=== PATIENT | male | born 1980 | race Caucasian/White ===

== ENCOUNTER 2017-06-14 09:13 | Inpatient (IN) | payer BC ==
[~2017-06-14] VITALS: Ht 172.7 cm; Wt 82.1 kg
[2017-06-14 09:16] VITALS: BP 125/77
--- NOTE | 2017-06-14 09:22 | NUR ---
PATIENT TO BED 8.
--- NOTE | 2017-06-14 09:23 | NUR ---
37/M BIB MOTHER C/O ABDOMINAL PAIN x LAST NIGHT. PAIN 10/10 SHARP NON-RADIATING. PT HAS N/V BUT DENIES DIARRHEA OR CONSTIPATION. SKIN IS PINK/WARM/DRY; AAOX4 WITH EVEN AND STEADY GAIT; LUNGS CLEAR BL; HR EVEN AND REGULAR; PT DENIES ANY FEVER, CP, SOB, OR COUGH AT THIS TIME; PATIENT POSITIONED FOR COMFORT; HOB ELEVATED; BEDRAILS UP X2; BED DOWN. ER MD MADE AWARE OF PT STATUS.
--- NOTE | 2017-06-14 09:42 | NUR ---
Patient being evaluated by DR EDUARDO at bedside.
[2017-06-14] MEDS ORDERED: NACL 0.9% 1,000 ML IV ONE (09:55)
[2017-06-14] MEDS ORDERED: HYDROmorphone 1 MG/ML AMP IVP ONE (09:55)
--- NOTE | 2017-06-14 10:04 | NUR ---
PT TAKEN TO CT VIA GUR[facility]I, ACCOMPANIED BY FARHAN TECT.
--- NOTE | 2017-06-14 10:10 | NUR ---
LAB AT BEDSIDE.INSERTED IV CATH NO 20G LAC; PT TOLERATED PROCEDURE WELL. IV PATENT& INTACT. ADMINISTERED MEDS OREDER.
--- NOTE | 2017-06-14 10:10 | NUR ---
Note hortensia in EDM - 06/14/17 at 1025 by [email or web address] LAB AT BEDSIDE.INSERTED IV CATH NO 22G RIGHT HAND; PT TOLERATED PROCEDURE WELL. IV PATENT& INTACT. ADMINISTERED MEDS OREDER.
--- NOTE | 2017-06-14 10:20 | NUR ---
Richy bazan in [facility] - 06/14/17 at [address]
[2017-06-14 10:21] LABS: BASOPHILS # (AUTO) 0.1 K/uL (0.00-0.22); BASOPHILS % (AUTO) 0.9 % (0.0-2.0); EOSINOPHILS # (AUTO) 0.1 K/uL (0-0.4); EOSINOPHILS % (AUTO) 1.1 % (0.0-4.0); HEMATOCRIT 43.6 % (36-52); HEMOGLOBIN 14.5 g/dL (12.0-18.0); LYMPHOCYTES # (AUTO) 0.4 K/uL (2.0-11.5); LYMPHOCYTES % (AUTO) 3.6 % (20.5-51.1); MEAN CORPUSCULAR HEMOGLOBIN 31 pg (27-31); MEAN CORPUSCULAR HGB CONC 33 g/dL (33-37); MEAN CORPUSCULAR VOLUME 94 fL (80-94); MONOCYTES # (AUTO) 0.8 K/uL (0.8-1.0); MONOCYTES % (AUTO) 7.6 % (1.7-9.3); NEUTROPHILS # (AUTO) 9.4 K/uL (1.8-7.7); NEUTROPHILS % (AUTO) 86.8 % (42.2-75.2); PLATELET COUNT (AUTO) 162 K/uL (140-450); RED BLOOD CELL COUNT(AUTO) 4.65 MIL/uL (4.20-6.10); RED CELL DISTRIBUTION WIDTH 11.6 % (11.6-13.7)
[2017-06-14 10:31] LABS: CARBON DIOXIDE 27.6 mmol/L (21-32); CREATININE 0.9 mg/dL (0.7-1.3); POTASSIUM 4.6 mmol/L (3.5-5.1)
--- NOTE | 2017-06-14 10:32 | NUR ---
PT TAKEN TO CT VIA GUR[facility]I, ACCOMPANIED BY FARHAN TECT.
[2017-06-14 10:34] LABS: WHITE BLOOD COUNT (AUTO) 10.8 K/uL (4.8-10.8)
[2017-06-14 10:36] LABS: PROTHROMBIN TIME 10.9 secs (10.8-13.4)
[2017-06-14 10:37] LABS: ALBUMIN 4.1 g/dL (3.4-5.0); TOTAL BILIRUBIN 0.5 mg/dL (0.0-1.0)
--- NOTE | 2017-06-14 11:00 | NUR ---
BACK FROM CT
--- NOTE | 2017-06-14 11:11 | NUR ---
Patient appears to be resting comfortably in bed. Vital Signs within normal limits. Respirations even and unlabored.WILL CONTINUE TO MONITOR. Addendum: 06/14/17 at 1111 by MED1 MOTHER AT BEDSIDE.
--- NOTE | 2017-06-14 11:39 | NUR ---
Patient being reevaluated by DR EDUARDO at bedside.
--- NOTE | 2017-06-14 12:28 | NUR ---
GAVE REPORT TO JENNIFER PEDERSEN.
[2017-06-14 12:30] VITALS: BP 138/85
--- NOTE | 2017-06-14 12:30 | NUR ---
PATIENT ADMITTED TO THE UNIT FROM ER. PATIENT AWAKE, ALERT AND ORIENTED. PATIENT IS AMBULATORY. NO S/S OF DISTRESS NOTED. PATIENT C/O ABDOMINAL PAIN. PATIENT MEDICATED IN ER. IV LINE TO THE LEFT AC INTACT WITH IVF INFUSING WELL. BED LOWERED WITH CALL LIGHT WITHIN REACH. WILL CONTINUE TO MONITOR
--- NOTE | 2017-06-14 12:30 | NUR ---
Patient will be admitted to care of DR BALBUENA. Admited to MS. Will go to room 112A. Belongings list completed. Report to JENNIFER PEDERSEN.
[2017-06-14] MEDS ORDERED: ONDANSETRON 4 MG/2 ML VIAL IVP PRN (12:55)
[2017-06-14] MEDS ORDERED: LORazepam 2 MG/ML VIAL IVP PRN (12:55)
[2017-06-14] MEDS ORDERED: MORPHINE SULFATE 4 MG/ML SYR IVP PRN (12:55)
[2017-06-14] MEDS ORDERED: MORPHINE SULFATE 2 MG/ML SYR IVP PRN (12:55)
--- NOTE | 2017-06-14 13:58 | NUR ---
PATIENT ASLEEP IN BED. NO S/S OF DISTRESS NOTED
[2017-06-14] MEDS: DEXT 5% /NACL 0.9% 1,000 ML IV SCH (14:51)
[2017-06-14] MEDS ORDERED: MAGNESIUM HYDROXIDE 2400 MG/30 ML UDC PO SCH (15:11)
[2017-06-14 16:00] VITALS: BP 121/76
--- NOTE | 2017-06-14 16:22 | NUR ---
NOTIFIED DR VARGAS ABOUT PATIENT'S TEMP OF 103.1. ORDERS RECEIVED. COOLING MEASURES IN PLACE
[2017-06-14] MEDS: ACETAMINOPHEN 650 MG SUPP RC PRN (16:51)
--- NOTE | 2017-06-14 18:13 | NUR ---
TEMP RECHECKED 100.6
--- NOTE | 2017-06-14 18:50 | NUR ---
TEMP CHECKED 98.8. NO S/S OF DISTRESS NOTED. FAMILY MEMBERS PRESENT AT BEDSIDE
--- NOTE | 2017-06-14 19:33 | NUR ---
PATIENT REPORT GIVEN AT BEDSIDE. PATIENT ENDORSED IN STABLE CONDITION
--- NOTE | 2017-06-14 19:35 | NUR ---
RECEIVED PT FROM MANOLO RN PT FAROESE SPEAKER AAOX4 AMBULATORY DENIES ANY DISTRESS AT THIS TIME RELTIVES AT BED SITNE INITIAL ASSESSMENT DONE
[2017-06-14 20:00] VITALS: BP 129/76
--- NOTE | 2017-06-14 22:00 | NUR ---
PT DENIES ANY PAIN OR DISCOMFORT SLEEPING AT THIS TIME
[2017-06-15] VITALS: BP 132/75
[2017-06-15] MEDS: DEXT 5% /NACL 0.9% 1,000 ML IV SCH ×4 (00:30→22:53)
--- NOTE | 2017-06-15 00:43 | NUR ---
PT AMBULATES VOIDING WELL AND HE DOES NOT COMPLAINTS OF ANY DISCOMFORT AT THIS TIME
--- NOTE | 2017-06-15 03:00 | NUR ---
PT AMBULATORY VOIDING WELL DENIES ANY PAIN COMING BACK TO SLEEP
[2017-06-15 04:00] VITALS: BP 120/69
[2017-06-15] MEDS: ACETAMINOPHEN 650 MG SUPP RC PRN ×3 (04:00→21:22)
--- NOTE | 2017-06-15 04:07 | NUR ---
PT HAS TEMP 100.4 TYLENOL SUPP GIVEN ORDER PT WILL BE MONITORING TEMP
--- NOTE | 2017-06-15 06:27 | NUR ---
PT RESTING ON BED DENIES ANY PAIN AT THIS TIME NPO, DR SAM Phillips .ORDER BLOOD CULTURE AND LAB IS HERE AND TO TAKE THE ORDER.
[2017-06-15 06:30] LABS: HEMOGLOBIN 13.8 g/dL (12.0-18.0); MEAN CORPUSCULAR HEMOGLOBIN 32 pg (27-31); MEAN CORPUSCULAR HGB CONC 34 g/dL (33-37); MEAN CORPUSCULAR VOLUME 94 fL (80-94); PLATELET COUNT (AUTO) 149 K/uL (140-450); RED BLOOD CELL COUNT(AUTO) 4.35 MIL/uL (4.20-6.10); RED CELL DISTRIBUTION WIDTH 11.3 % (11.6-13.7); WHITE BLOOD COUNT (AUTO) 12.3 K/uL (4.8-10.8)
[2017-06-15 06:49] LABS: ANION GAP 12.5 (8-16); CARBON DIOXIDE 25.2 mmol/L (21-32); CREATININE 0.7 mg/dL (0.7-1.3); POTASSIUM 3.7 mmol/L (3.5-5.1)
--- NOTE | 2017-06-15 07:15 | NUR ---
ASSUMED CONTINUITY OF CARE. NO SIGNS AND SYMPTOMS OF ACUTE DISTRESS NOTED. INITIAL ASSESSMENT DONE. EXPLAINED DIAGNOSIS, PLAN OF CARE, PAIN MANAGEMENT TEACHING, USE OF CALL LIGHT/BED/TV/BATHROOM. VERBALIZED UNDERSTANDING. CALL LIGHT WITHIN REACH.
[2017-06-15 07:24] LABS: LYMPHOCYTES % (MANUAL) 6 % (20-46); MONOCYTES % (MANUAL) 5 % (5-12)
[2017-06-15 08:00] VITALS: BP 120/61
--- NOTE | 2017-06-15 08:00 | NUR ---
Patient's Plan of Care was discussed and reviewed with GENERAL OFFICE DISPATCHER: ANNIE CAR
--- NOTE | 2017-06-15 08:11 | NUR ---
PATIENT HAS BEEN SCREENED AND CATEGORIZED MODERATE NUTRITION RISK. PATIENT WILL BE SEEN WITHIN 3-5 DAYS OF ADMISSION. 06/17/17-06/19/[address]
--- NOTE | 2017-06-15 08:12 | NUR ---
DR. HOFF CAME, CHECKED PT. CHART, AND SPOKE TO PT..
--- NOTE | 2017-06-15 08:30 | NUR ---
RADIOLOGY CAME FOR PT. XR ABD. PT. RESTING ON BED.
--- NOTE | 2017-06-15 09:35 | NUR ---
WENT TO BATHROOM WITHOUT ASSISTANCE. TOLERATED WELL. NO C/O PAIN. PT. REPORTED THAT HE HAD SMALL AMOUNT OF FORMED BM. INFORMED CHARGE NURSE AUBREE PANTOJA.
--- NOTE | 2017-06-15 10:19 | NUR ---
CALLED DR. HOFF AND MADE AWARE RESULTS OF XR ACUTE ABDOMEN SERIES. READ IMPRESSION VIA PHONE TO DR. HOFF. INFORMED CHARGE NURSE AUBREE PANTOJA.
--- NOTE | 2017-06-15 11:58 | NUR ---
DR. ROCHA CAME, CHECKED PT. CHART, AND SPOKE TO PT. MOTHER.
[2017-06-15 12:00] VITALS: BP 109/59
--- NOTE | 2017-06-15 15:55 | NUR ---
CM NOTE PER HEAD OF [employer], SHE SPOKE WITH CARL OF [facility] [employer] AND PER CARL THERE IS NO ASSIGNED ADULT EDUCATION MANAGER YET BUT TO SEND REVIEWS TO FAX# [phone] PH# [phone]. INITIAL REVIEW FAXED TO [facility] [phone] # [phone], REF# [id number].
[2017-06-15 16:00] VITALS: BP 124/68
--- NOTE | 2017-06-15 16:56 | NUR ---
DR. VARGAS, AJAY CAME, INFORMED THAT PT. HAD FEVER AT 1200 TEMP 101.2 AND MEDICATED WITH TYLENOL 650 MG RC.
--- NOTE | 2017-06-15 19:15 | NUR ---
BEDSIDE REPORT GIVEN TO ALEXANDRA PANTOJA. IVF INFUSING WELL. IN STABLE CONDITION. ALSO ENDORSED ABOUT PT. CLEAR LIQUID DIET AFTER 2100 AND NPO AFTER MIDNIGHT PER DR. HOFF ORDER.
[2017-06-15 20:00] VITALS: BP 117/57
--- NOTE | 2017-06-15 20:10 | NUR ---
PATIENT HAD SMALL BOWEL MOVEMENT, STOOL FORMED, SOFT, NO FOREIGN BODIES NOTED IN THE TOILET. WILL CONTINUE TO MONITOR.
--- NOTE | 2017-06-15 20:50 | NUR ---
T 101.9, ICE PACKS APPLIED UNDER THE ARMPITS, SPONGE BATH GIVEN, WILL ADMINISTER TYLENOL ORDERED.
[2017-06-15] MEDS: LACTULOSE 20 GM/30 ML UDC PO SCH (21:00)
[2017-06-15] MEDS: POLYETHYLENE GLYCOL 17 GM/PKT PO SCH (21:01)
--- NOTE | 2017-06-15 21:05 | NUR ---
DR. OBRIEN CAME AND EXAMINED PATIENT, MADE DR. OBRIEN AWARE OF PATIENT'S TEMP 101.9.
[2017-06-15] MEDS: LEVOFLOXACIN 500 MG/D5W PREMIX 100 ML IV SCH (21:22)
[2017-06-16] VITALS: BP 103/66
--- NOTE | 2017-06-16 00:10 | NUR ---
PATIENT SLEEPING IN BED, NO S/S OF ACUTE DISTRESS NOTED, RESPIRATION EVEN AND UNLABORED, CALL LIGHT WITHIN REACH, SAFETY MEASURE ENSURED, WILL CONTINUE TO MONITOR.
--- NOTE | 2017-06-16 04:29 | NUR ---
PATIENT HAD BOWEL MOVEMENT. LIQUID STOOL NOTED, NO FOREIGN BODY NOTED IN THE TOILET. VITAL SIGNS READ T 98.6, BP 107/73, HR 84, RR 18, O2SAT 94%, DENIES PAIN. CALL LIGHT WITHIN REACH, SAFETY MEASURE ENSURED, WILL CONTINUE TO MONITOR.
[2017-06-16] MEDS: metroNIDAZOLE 500 MG/NS PREMIX 100 ML IV SCH ×3 (05:10→20:31)
--- NOTE | 2017-06-16 05:16 | NUR ---
FLAGYL STARTED, PATIENT TOLERATED WELL, NO S/S OF ACUTE DISTRESS NOTED, RESPIRATION EVEN AND UNLABORED, CALL LIGHT WITH IN REACH, SAFETY MEASURE ENSURED, WILL CONTINUE TO MONITOR.
[2017-06-16 05:56] LABS: HEMATOCRIT 39.6 % (36-52); HEMOGLOBIN 13.2 g/dL (12.0-18.0); MEAN CORPUSCULAR HEMOGLOBIN 31 pg (27-31); MEAN CORPUSCULAR HGB CONC 33 g/dL (33-37); MEAN CORPUSCULAR VOLUME 94 fL (80-94); PLATELET COUNT (AUTO) 157 K/uL (140-450); RED CELL DISTRIBUTION WIDTH 11.4 % (11.6-13.7); WHITE BLOOD COUNT (AUTO) 12.5 K/uL (4.8-10.8)
[2017-06-16 06:32] LABS: ANION GAP 12.8 (8-16); CARBON DIOXIDE 26.1 mmol/L (21-32); CREATININE 0.9 mg/dL (0.7-1.3); POTASSIUM 3.9 mmol/L (3.5-5.1)
[2017-06-16 07:03] LABS: LYMPHOCYTES % (MANUAL) 11 % (20-46); MONOCYTES % (MANUAL) 8 % (5-12)
--- NOTE | 2017-06-16 07:35 | NUR ---
ENDORSED PLAN OF CARE TO DAY RN. PATIENT IS IN STABLE CONDITION, NO S/S OF ACUTE DISTRESS.
--- NOTE | 2017-06-16 07:36 | NUR ---
RECEIVED BEDSIDE REPORT FROM REMOTE SENSING RESEARCH SCIENTIST NURSE. PATIENT AWAKE AND ALERT, NO SIGNS OF ACUTE DISTRESS. BOWEL SOUNDS ACTIVE IN ALL 4 QUADRANTS. SKIN INTACT. AMBULATORY WITH BRP. IV PATENT AND ASYMPTOMATIC. PATIENT DENIES PAIN AT THIS TIME. RE-ORIENTED TO HOSPITAL AND TO UNIT, PATIENT VERBALIZES UNDERSTANDING. BED IN LOW POSITION WITH BILATERAL HALF SIDE RAILS UP, CALL LIGHT WITHIN REACH. WILL CONTINUE TO MONITOR.
[2017-06-16 08:00] VITALS: BP 115/71
[2017-06-16] MEDS: LACTULOSE 20 GM/30 ML UDC PO SCH ×2 (08:54→20:29)
[2017-06-16] MEDS: POLYETHYLENE GLYCOL 17 GM/PKT PO SCH ×2 (08:55→20:30)
--- NOTE | 2017-06-16 09:16 | NUR ---
CM NOTE CONCURRENT REVIEW FAXED TO [facility] [phone] # [phone], REF# [id number].
[2017-06-16] MEDS: ACETAMINOPHEN 650 MG SUPP RC PRN (12:47)
--- NOTE | 2017-06-16 12:52 | NUR ---
PT HAS FEVER OF 101.5, GAVE TYLENOL SUPP. TOLERATED WELL. WILL RE ASSESS.
[2017-06-16] MEDS: DEXT 5% /NACL 0.9% 1,000 ML IV SCH ×2 (14:55→23:36)
[2017-06-16 16:00] VITALS: BP 106/62
--- NOTE | 2017-06-16 16:48 | NUR ---
MADE ROUNDS, PT IS SLEEPING SHOWING NO SIGNS OF ACUTE DISTRESS. BED ON LOW POSITION, HALF SIDE RAILS UP. CALL LIGHT WITHIN REACH. WILL CONTINUE TO MONITOR.
--- NOTE | 2017-06-16 19:24 | NUR ---
PATIENT AWAKE AND ALERT, NO SIGNS OF ACUTE DISTRESS. ENDORSED TO REGULATORY AFFAIRS SPEC NURSE FOR CONTINUITY OF CARE.
--- NOTE | 2017-06-16 19:25 | NUR ---
RECEIVED REPORT FROM DAY NURSE. PT IS IN STABLE CONDITION. PT IS AAOX4, PT IS ON RA, RESPIRATIONS EVEN AND UNLABORED. PT HAS IV TO L AC 20G, INFUSING WELL, PATENT AND INTACT. SKIN IS IN TACT. BOWEL SOUNDS ACTIVE IN ALL FOUR QUADRANTS. INITIAL ASSESSMENT COMPLETED. DISCUSSED PLAN OF CARE WITH PT AND SPOUSE AT BEDSIDE, VERBALIZED UNDERSTANDING. ALL SAFETY PRECAUTIONS MET, CALL LIGHT WITHIN REACH, WILL CONTINUE TO MONITOR.
[2017-06-16 20:00] VITALS: BP 102/61
--- NOTE | 2017-06-16 20:00 | NUR ---
PAGED DR. Sharon ROCHA FOR PT STILL NPO. ABLE TO CONTACT. MADE AWARE . WITH ORDER, DIET CHANGE TO FULL DIET ADVANCE TOLERATED. WILL SEE PT TOMORROW.
--- NOTE | 2017-06-16 20:05 | NUR ---
PAGED DR. VARGAS, PT HAS FEVER OF 102.7, PT HAS TYLENOL SUPPOSITORY ORDERED. ASKED DR. VARGAS IF TYLENOL CAN BE CHANGED TO TABLET TYLENOL. DR VARGAS MADE AWARE OF FEVER AND ORDERED TABLET TYLENOL. WILL MEDICATE PER ORDERS.
[2017-06-16] MEDS ORDERED: ACETAMINOPHEN 325 MG TAB PO PRN (20:15)
--- NOTE | 2017-06-16 20:30 | NUR ---
PT MEDICATED PER MD ORDERS, TYLENOL GIVEN WITH DUE MEDICATIONS. PT TOLERATED WELL. ICE PACKS ARE IN PLACE. ALL SAFETY PRECAUTIONS MET, CALL LIGHT WITHIN REACH WILL CONTINUE TO MONITOR.
[2017-06-16] MEDS: LEVOFLOXACIN 500 MG/D5W PREMIX 100 ML IV SCH (20:32)
--- NOTE | 2017-06-16 21:30 | NUR ---
CHECKED IN ON PT, PT RESTING COMFORTABLY IN BED. RECHECKED PTS TEMPERATURE. TEMPERATURE IS 99.2. NO S/S OF DISTRESS NOTED. ALL SAFETY PRECAUTIONS MET, CALL LIGHT WITHIN REACH, WILL CONTINUE TO MONITOR.
--- NOTE | 2017-06-16 22:45 | NUR ---
CHECKED IN ON PT. PT RESTING COMFORTABLY IN BED, NO S/S OF DISTRESS NOTED. ALL SAFETY PRECAUTIONS MET, CALL LIGHT WITHIN REACH, WILL CONTINUE TO MONITOR.
[2017-06-17] VITALS: BP 98/64
--- NOTE | 2017-06-17 | NUR ---
CHECKED IN ON PT, NO S/S OF DISTRESS NOTED. PT IS AFEBRILE. PT RESTING COMFORTABLY IN BED. ALL SAFETY PRECAUTIONS MET, CALL LIGHT WITHIN REACH, WILL CONTINUE TO MONITOR.
--- NOTE | 2017-06-17 02:00 | NUR ---
CHECKED IN ON PT. PT RESTING IN BED COMFORTABLY, NO S/S OF DISTRESS NOTED. ALL SAFETY PRECAUTIONS MET, CALL LIGHT WITHIN REACH, WILL CONTINUE TO MONITOR.
--- NOTE | 2017-06-17 04:15 | NUR ---
CHECKED IN ON PT. PT RESTING IN BED COMFORTABLY, NO S/S OF DISTRESS NOTED. ALL SAFETY PRECAUTIONS MET, CALL LIGHT WITHIN REACH, WILL CONTINUE TO MONITOR.
[2017-06-17] MEDS: metroNIDAZOLE 500 MG/NS PREMIX 100 ML IV SCH ×3 (04:32→21:31)
[2017-06-17 06:42] LABS: HEMOGLOBIN 12.6 g/dL (12.0-18.0); MEAN CORPUSCULAR HEMOGLOBIN 32 pg (27-31); MEAN CORPUSCULAR HGB CONC 33 g/dL (33-37); MEAN CORPUSCULAR VOLUME 95 fL (80-94); PLATELET COUNT (AUTO) 164 K/uL (140-450); RED BLOOD CELL COUNT(AUTO) 4.01 MIL/uL (4.20-6.10); RED CELL DISTRIBUTION WIDTH 11.8 % (11.6-13.7); WHITE BLOOD COUNT (AUTO) 12.4 K/uL (4.8-10.8)
[2017-06-17 06:54] LABS: ANION GAP 10.9 (8-16); CARBON DIOXIDE 26.4 mmol/L (21-32); CREATININE 0.8 mg/dL (0.7-1.3); POTASSIUM 3.3 mmol/L (3.5-5.1)
--- NOTE | 2017-06-17 07:20 | NUR ---
ENDORSED PLAN OF CARE TO DAY NURSE, PT IN STABLE CONDITION, NO S/S OF DISTRESS NOTED. ALL SAFETY PRECAUTIONS MET, CALL LIGHT WITHIN REACH.
--- NOTE | 2017-06-17 07:21 | NUR ---
RECEIVED PATIENT REPORT AT BEDSIDE FROM EVENING NURSE. PATIENT IS ALERT, AWAKE AND ORIENTED. NO SIGNS AND SYMPTOMS OF DISTRESS NOTED. NO COMPLAINTS OF PAIN AT THIS TIME. IV SITE NOTED ON LEFT AC, IVF INFUSING WELL. BED IN LOWEST POSITION, SIDE RAILS UP AND CALL LIGHT WITHIN REACH. WILL CONTINUE TO MONITOR.
[2017-06-17 07:46] VITALS: BP 103/65
[2017-06-17 07:54] LABS: LYMPHOCYTES % (MANUAL) 8 % (20-46); MONOCYTES % (MANUAL) 8 % (5-12)
[2017-06-17] MEDS: POLYETHYLENE GLYCOL 17 GM/PKT PO SCH (09:00)
[2017-06-17] MEDS: LACTULOSE 20 GM/30 ML UDC PO SCH (09:00)
--- NOTE | 2017-06-17 09:00 | NUR ---
PATIENT'S MOTHER IS PRESENT AT BEDSIDE
--- NOTE | 2017-06-17 09:27 | NUR ---
PAGED DR. VARGAS REGARDING POTASSIUM LEVEL 3.3. AWAITING CALL BACK
--- NOTE | 2017-06-17 09:33 | NUR ---
PT HAD WATERY BOWEL MOVEMENT, AND HAS A DUE BM MEDICATION. WILL LET MD KNOW IT MEDICATION CAN BE HELD. AWAITING CALL BACK FROM DR. VARGAS.
--- NOTE | 2017-06-17 10:21 | NUR ---
PAGED ARMEN LIAO, CALLED EXCHANGE TO FOLLOW UP FOR ORDERS. AWAITING CALL BACK.
[2017-06-17] MEDS: DEXT 5% /NACL 0.9% 1,000 ML IV SCH (10:55)
--- NOTE | 2017-06-17 11:22 | NUR ---
CALLED DR. SAM MOSS. [phone], MADE AWARE OF PT'S POTASSIUM LEVEL 3.3, AND PT ON MEDICATION CEPHULAC AND MIRALAX, PT HAVING WATERY STOOL. WITH NEW ORDERS FOR KDUR PO AND HOLD THE BM MEDS FOR NOW. ALSO MADE AWARE OF ORDER FOR XR UPPER GI WITHOUT KUB, WITH ORDER TO CANCEL.
[2017-06-17] MEDS ORDERED: POTASSIUM CHLORIDE 10 MEQ TABER PO SCH (12:00)
--- NOTE | 2017-06-17 12:42 | NUR ---
CM NOTE CONCURRENT REVIEW FAXED TO [facility] / FAX# [phone], PH# [phone]
--- NOTE | 2017-06-17 13:49 | NUR ---
DR. ROCHA CAME TO SEE PT, WITH ORDERS MADE AND CARRIED OUT.
--- NOTE | 2017-06-17 15:18 | NUR ---
PT ASLEEP. ENCOURAGED PT TO AMBULATE, BENEFITS OF AMBULATION AND HEALTH TEACHINGS GIVEN TO PT. PT VERBALIZED UNDERSTANDING AND SAID HE WILL AMBULATE LATER. PT WENT BACK TO SLEEP.
[2017-06-17 16:00] VITALS: BP 97/60
--- NOTE | 2017-06-17 18:45 | NUR ---
PT AMBULATING ALONG THE HALLWAY WITH MOTHER, STABLE, NO SOB NOTED. DENIES ANY PAIN OR DISCOMFORT NOTED AT THIS TIME. LINEN CHANGED DONE PER FAMILY REQUEST.
--- NOTE | 2017-06-17 19:18 | NUR ---
PATIENT REPORT GIVEN TO EVENING NURSE AT BEDSIDE. PATIENT'S MOTHER IS PRESENT. PATIENT IS IN STABLE CONDITION.
--- NOTE | 2017-06-17 19:32 | NUR ---
RECEIVED FROM AM RN IN BED AWAKE AND ALERT. MOTHER AT BEDSIDE. NO SOB. DENIES ANY PAIN AT THIS TIME. CALL LIGHT WITH IN REACH AND CARE PLANS FOR THE NIGHT DISCUSSED WITH HIM. IVF SITE TO LFA#22 INTACT AND NO INFILTRATION NOTED. NEW LINE JUST INSERTED BY AM RN. DX. OF FOREIGN BODY INGESTION.
[2017-06-17] MEDS: LEVOFLOXACIN 500 MG/D5W PREMIX 100 ML IV SCH (21:30)
--- NOTE | 2017-06-17 22:00 | NUR ---
PT. REQUESTED FOR NEW GOWN RT PERSPIRING . "ROOM IS WARM" PROVIDED WITH ONE. WENT BACK TO SLEEP. CALL LIGHT WITH IN REACH. NO PAIN COMPLAINTS.
[2017-06-17 23:27] VITALS: BP 99/65
--- NOTE | 2017-06-18 01:49 | NUR ---
SLEEPING WELL. AMBULATES TO RESTROOM BY HIMSELF. INDEPENDENT. CALL LIGHT WITH N REACH. NO PAIN COMPLAINTS DONE SO FAR.
[2017-06-18] MEDS: metroNIDAZOLE 500 MG/NS PREMIX 100 ML IV SCH ×3 (05:05→21:05)
[2017-06-18 06:36] LABS: HEMATOCRIT 36.7 % (36-52); HEMOGLOBIN 12.2 g/dL (12.0-18.0); MEAN CORPUSCULAR HEMOGLOBIN 32 pg (27-31); MEAN CORPUSCULAR HGB CONC 33 g/dL (33-37); MEAN CORPUSCULAR VOLUME 95 fL (80-94); PLATELET COUNT (AUTO) 188 K/uL (140-450); RED BLOOD CELL COUNT(AUTO) 3.88 MIL/uL (4.20-6.10); RED CELL DISTRIBUTION WIDTH 11.6 % (11.6-13.7); WHITE BLOOD COUNT (AUTO) 9.4 K/uL (4.8-10.8)
[2017-06-18 07:09] LABS: ANION GAP 12.5 (8-16); CARBON DIOXIDE 24.8 mmol/L (21-32); CREATININE 0.9 mg/dL (0.7-1.3); POTASSIUM 3.3 mmol/L (3.5-5.1)
--- NOTE | 2017-06-18 07:20 | NUR ---
ENDORSED TO AM RN IN BED SLEEPING. ABLE TO WAKE UP EASILY WHEN CALLED BY NAME. VERBALIZES WELL. NO SOB. DENIES ANY PAIN. ABLE TO USE CALL LIGHT FOR HELP.
--- NOTE | 2017-06-18 07:35 | NUR ---
RECEIVED PATIENT REPORT AT BEDSIDE FROM NIGHT NURSE. PATIENT IS AAOX4 AND SHOWS NO S/S OF ACUTE DISTRESS ON ROOM AIR. PATIENT DENIES PAIN. IV NOTED ON THE L FA WITH IVF'S INFUSING WELL. SKIN IS INTACT. PATIENT IS AWARE OF POC FOR TODAY AND VERBALIZED UNDERSTANDING. PATIENT STATES HE KNOWS HOW TO USE CALL LIGHT WHEN ASSISTANCE IS NEEDED. THE BED IS IN THE LOW POSITION WITH CALL LIGHT WITHIN REACH. WILL CONTINUE TO MONITOR.
[2017-06-18 07:42] LABS: LYMPHOCYTES % (MANUAL) 16 % (20-46); MONOCYTES % (MANUAL) 7 % (5-12)
[2017-06-18 08:00] VITALS: BP 136/78
--- NOTE | 2017-06-18 08:30 | NUR ---
SPOKE WITH DR VARGAS REGARDING PATIENT'S POTASSIUM OF 3.3. RECEIVED ORDERS FOR K DUR 40 MEQ PO ONCE.
[2017-06-18] MEDS ORDERED: POTASSIUM CHLORIDE 10 MEQ TABER PO SCH (08:40)
--- NOTE | 2017-06-18 08:50 | NUR ---
WHILE ADMINISTERING SCHEDULED MEDICATION PATIENT WAS CONCERNED FOR HIS CARE FROM NIGHT NURSE. PATIENT STATED " NIGHT NURSE DID NOT CHECK MY BLOOD PRESSURE ALL LAST NIGHT." PATIENT CAN FAMILY ASKED TO SPEAK WITH FRAME FEEDER. NOTIFIED BOSTON CUTTER JOWIE. DENEEN RODRIGUEZ STATED SHE WILL SPEAK WITH PATIENT AND FAMILY
[2017-06-18] MEDS: DEXT 5% /NACL 0.9% 1,000 ML IV SCH (08:59)
--- NOTE | 2017-06-18 10:02 | NUR ---
PATIENT IS AAOX4 AND SHOWS NO S/S OF ACUTE DISTRESS ON ROOM AIR. PATIENT LEFT UNIT TO RADIOLOGY WITH NUVIA IN STABLE CONDITION.
--- NOTE | 2017-06-18 10:17 | NUR ---
PATIENT IS BACK ON UNIT. PATIENT SHOWS NO S/S OF ACUTE DISTRESS ON ROOM AIR. PATIENT BACK IN BED IN LOW POSITION. ALL NEEDS MET AT THIS TIME.
--- NOTE | 2017-06-18 12:13 | NUR ---
PATIENT HAS MOTHER AT BEDSIDE AND SHOWS NO S/S OF ACUTE DISTRESS ON ROOM AIR. PATIENT NEEDS MET AT THIS TIME. DENIES PAIN. WILL CONTINUE TO MONITOR.
--- NOTE | 2017-06-18 12:37 | NUR ---
06/18/17 RD INITIAL ASSESSMENT COMPLETED PLEASE REFER TO NUTRITION ASSESSMENT UNDER CARE ACTIVITY FOR ESTIMATED NUTRITIONAL NEEDS. 1. CONTINUE REGULAR DIET 2. ENCOURAGE INCREASED PO INTAKE TO TOLERANCE 3. RD TO FOLLOW-UP 3-5 DAYS, MODERATE RISK CARMEN SMITH, EBONY
--- NOTE | 2017-06-18 13:30 | NUR ---
ADMINISTERED SCHEDULED MEDICATIONS. PATIENT DENIES PAIN. PATIENT HAS FAMILY AT BEDSIDE. THE BED IS IN LOW POSITION AND CALL LIGHT WITHIN REACH.
--- NOTE | 2017-06-18 13:36 | NUR ---
FAXED CONCURRENT REVIEW TO [facility] [phone] PHONE [phone] REF NO [id number]
--- NOTE | 2017-06-18 15:45 | NUR ---
PATIENT DENIES PAIN. PATIENT SHOWS NO S/S OF ACUTE DISTRESS ON ROOM AIR. MOTHER AT BEDSIDE. PATIENT STATES HE HAS HAD TWO BM. DENIES BLOOD IN STOOL AND BLACK TARRY STOOL. PATIENT BED IS IN LOW POSITION WITH CALL LIGHT WITHIN REACH. WILL CONTINUE TO MONITOR.
[2017-06-18 16:00] VITALS: BP 117/77
--- NOTE | 2017-06-18 17:30 | NUR ---
SPOKE WITH DR. HOFF REGARDING PATIENT'S POC. DR ASKED TO BE READ LATEST IMAGINING RESULTS. DR RECOMMENDED DC AND OUTPATIENT CT SCAN WITH ORAL AND IV CONTRAST, GI CONSULT WITH LONG SCOPE, AND IF PATIENT HAS ANY ABD PAIN TO HEAD OVER TO HOSP[facility]. WILL PLACE ORDER FOR DC BY CONSULT. PATIENT IS AWARE OF POC. PATIENT AWARE DR VARGAS STILL NEEDS TO APPROVE DC.
--- NOTE | 2017-06-18 17:40 | NUR ---
DR VARGAS WAS PAGED REGARDING DR HOFF'S NEW ORDERS. WILL AWAIT FOR CALL BACK.
--- NOTE | 2017-06-18 18:35 | NUR ---
SPOKE WITH DR VARGAS REGARDING DR HOFF ORDERS. STATES TO PLACE ORDERS FOR CT WITH ORAL AND IV CONTRAST, NPO AT MIDNIGHT 06/19/17, AND OBTAIN CONSENT FOR PROCEDURE. WILL PLACE ORDERS.
--- NOTE | 2017-06-18 19:15 | NUR ---
GAVE REPORT AT BEDSIDE TO NIGHT NURSE. PATIENT IS AWARE OF POC FOR TOMORROW. PT AND FAMILY VERBALIZED UNDERSTANDING. PATIENT SHOWS NO S/S OF ACUTE DISTRESS ON ROOM AIR. PATIENT ENDORSED IN STABLE CONDITION.
--- NOTE | 2017-06-18 19:30 | NUR ---
RECEIVED REPORT FROM AM NURSE. PT RESTING IN BED, AOX4, AMBULATES INDEPENDENTLY WITH STEADY GAIT, ABLE TO VERBALIZE NEEDS. PT DENIES CHEST PAIN, SOB OR S/S OF ACUTE DISTRESS. PT REPORTS SMALL SOLID BOWEL MOVEMENT WHEN HE WENT TO RESTROOM 5 MINS AGO. IV ACCESS ASYMPTOMATIC, PATENT AND INTACT. IVF INFUSING WELL. DISCUSSED AND REVIEWED PLAN OF CARE WITH PT. PT VERBALIZED UNDERSTANDING. ALL NEEDS MET. SAFETY MEASURES ENSURED. CALL LIGHT WITHIN REACH. WILL CONTINUE TO MONITOR.
[2017-06-18 20:00] VITALS: BP 110/64
--- NOTE | 2017-06-18 21:07 | NUR ---
ADMINISTERED DUE MED WITH EDUCATION. IVPB INFUSING WELL. PT VERBALIZED UNDERSTANDING, TOLERATED MED WELL. ALL NEEDS MET. SAFETY MEASURES ENSURED. CALL LIGHT WITHIN REACH. WILL CONTINUE TO MONITOR.
[2017-06-18] MEDS: LEVOFLOXACIN 500 MG/D5W PREMIX 100 ML IV SCH (21:57)
[2017-06-19] VITALS: BP 121/75
--- NOTE | 2017-06-19 00:15 | NUR ---
PT SLEEPING COMFORTABLY BUT AROUSABLE. REMINDED PT TO REMAIN NPO AT THIS TIME UNTIL CT ABD WITH CONTRAST TOMORROW MORNING. ALL NEEDS MET. SAFETY MEASURES ENSURED. CALL LIGHT WITHIN REACH. WILL CONTINUE TO MONITOR.
[2017-06-19] MEDS: metroNIDAZOLE 500 MG/NS PREMIX 100 ML IV SCH ×2 (04:20→12:50)
--- NOTE | 2017-06-19 04:20 | NUR ---
PT SLEEPING COMFORTABLY BUT AROUSABLE. NO S/S OF ACUTE DISTRESS. ADMINISTERED DUE MED WITH EDUCATION. PT STATED "OK." IVPB INFUSING WELL. ALL NEEDS MET. SAFETY MEASURES ENSURED. CALL LIGHT WITHIN REACH. WILL CONTINUE TO MONITOR.
--- NOTE | 2017-06-19 05:40 | NUR ---
INSERTED NEW IV ON PT'S LEFT AC, 20G. PT TOLERATED WELL. ALL NEEDS MET. SAFETY MEASURES ENSURED. CALL LIGHT WITHIN REACH. WILL CONTINUE TO MONITOR.
--- NOTE | 2017-06-19 06:16 | NUR ---
Rod DELGADO AT BEDSIDE TO DISCUSS PT PLAN OF CARE. MD DISCUSSED RISKS AND BENEFITS OF CT OF ABD/PELV WITH CONTRAST. PT VERBALIZED UNDERSTANDING. CONSENT SIGNED. MD DISCUSSED NEED FOR TRANSFER TO ANOTHER FACILITY WITH A LONG ENDOSCOPE TO REMOVE FOREIGN BODIES. PT VERBALIZED UNDERSTANDING.
[2017-06-19 06:18] LABS: BASOPHILS # (AUTO) 0.1 K/uL (0.00-0.22); BASOPHILS % (AUTO) 0.8 % (0.0-2.0); EOSINOPHILS # (AUTO) 0.1 K/uL (0-0.4); EOSINOPHILS % (AUTO) 1.1 % (0.0-4.0); HEMATOCRIT 35.8 % (36-52); HEMOGLOBIN 12.2 g/dL (12.0-18.0); LYMPHOCYTES # (AUTO) 1.4 K/uL (2.0-11.5); LYMPHOCYTES % (AUTO) 14.2 % (20.5-51.1); MEAN CORPUSCULAR HEMOGLOBIN 32 pg (27-31); MEAN CORPUSCULAR HGB CONC 34 g/dL (33-37); MEAN CORPUSCULAR VOLUME 93 fL (80-94); MONOCYTES # (AUTO) 0.6 K/uL (0.8-1.0); MONOCYTES % (AUTO) 6.3 % (1.7-9.3); NEUTROPHILS # (AUTO) 7.5 K/uL (1.8-7.7); NEUTROPHILS % (AUTO) 77.6 % (42.2-75.2); PLATELET COUNT (AUTO) 208 K/uL (140-450); RED BLOOD CELL COUNT(AUTO) 3.84 MIL/uL (4.20-6.10); RED CELL DISTRIBUTION WIDTH 11.4 % (11.6-13.7); WHITE BLOOD COUNT (AUTO) 9.7 K/uL (4.8-10.8)
--- NOTE | 2017-06-19 06:30 | NUR ---
CALLED CT, MADE SHIRT TURNER AWARE OF PT'S CT ABD/PELV WITH CONTRAST. SHIRT TURNER STATED THAT CT IS DOWN AND UNAVAILABLE AT THIS TIME, BIOMED WILL COME IN AROUND 8-9AM TO TROUBLESHOOT. AWARE. WILL ENDORSE.
[2017-06-19 06:41] LABS: ANION GAP 11.1 (8-16); CREATININE 0.8 mg/dL (0.7-1.3); POTASSIUM 4.1 mmol/L (3.5-5.1)
--- NOTE | 2017-06-19 07:13 | NUR ---
ASSUMED CONTINUITY OF CARE. NO SIGNS AND SYMPTOMS OF ACUTE DISTRESS NOTED. INITIAL ASSESSMENT DONE. KEEP COMFORTABLE ON BED. EXPLAINED DIAGNOSIS, PLAN OF CARE, PAIN MANAGEMENT TEACHING, NOTHING BY MOUTH, USE OF CALL LIGHT/BED/TV/BATHROOM. VERBALIZED UNDERSTANDING. CALL LIGHT WITHIN REACH.
--- NOTE | 2017-06-19 07:15 | NUR ---
ENDORSED PLAN OF CARE TO AM NURSE. CONDITION STABLE.
[2017-06-19] MEDS: DEXT 5% /NACL 0.9% 1,000 ML IV SCH ×2 (07:41→15:54)
[2017-06-19 08:00] VITALS: BP 107/69
--- NOTE | 2017-06-19 09:20 | NUR ---
INFORMED NATIONAL INVESTIGATIVE PRODUCER -CARL AND CHARGE NURSE -AUBREE PANTOJA ABOUT PT. TRANSFER TO HIGHER LEVEL OF CARE.
--- NOTE | 2017-06-19 11:37 | NUR ---
CALLED JUAN FROM RADIOLOGY AND VERIFIED MD ORDER OF CT ABD/PELVIS WITH IV AND ORAL CONTRAST. PER JUAN CT MACHINE WAS OUT OF SERVICE AND CHARGEBACK SPECIALIST WAS FIXING IT. INFORMED CHARGE NURSE AUBREE PANTOJA.
--- NOTE | 2017-06-19 11:45 | NUR ---
HARSH FROM CT CAME AND SPOKE TO PT. AND PT. MOTHER. PER HARSH, HE WILL BE BACK AT 1500 FOR ORAL CONTRAST ADMINISTRATION AND PT. CAN HAVE LUNCH NOW. INFORMED CHARGE NURSE AUBREE PANTOJA.
--- NOTE | 2017-06-19 11:55 | NUR ---
PAGED AJAY LIAO. REGARDING PT. CT ABD/PELVIS WITH IV AND ORAL CONTRAST. LEFT CALL BACK NUMBER.
[2017-06-19 12:00] VITALS: BP 97/56
--- NOTE | 2017-06-19 12:49 | NUR ---
PAGED AJAY LIAO REGARDING PT. CT ABD/PELVIS WITH IV AND ORAL CONTRAST AND DIET. LEFT CALL BACK NUMBER. INFORMED CHARGE NURSE AUBREE PANTOJA.
--- NOTE | 2017-06-19 16:08 | NUR ---
CALLED BILL FROM RADIOLOGY AND VERIFIED MD ORDER OF CT ABD/PELVIS WITH IV AND ORAL CONTRAST. PER BILL FROM RADIOLOGY CT MACHINE STILL OUT OF SERVICE AND WILL BE AVAILABLE TOMORROW 06/20/17. INFORMED CHARGE NURSE AUBREE PANTOJA. PAGED AJAY LIAO REGARDING CT ABD/PELVIS WITH IV AND ORAL CONTRAST THAT WAS NOT DONE. LEFT CALL BACK NUMBER.
--- NOTE | 2017-06-19 18:07 | NUR ---
DR. ROCHA CAME AND SPOKE TO PT. AND PT. MOTHER.
--- NOTE | 2017-06-19 18:25 | NUR ---
CHARGE NURSE AUBREE MITCHELL -JENNIFER SPOKE TO AJAY LIAO VIA PHONE REGARDING PT. D/C HOME PER DR. JOSEFINA SUMNER.
--- NOTE | 2017-06-19 18:30 | NUR ---
DR. ROCHA SPOKE TO AJAY LIAO VIA PHONE REGARDING PT. D/C HOME. PER DR. ROCHA PT. CAN GO TO HIS CLINIC FOR FOLLOW-UP APPOINTMENT. DR. ROCHA GAVE [facility] PHONE NUMBER AND ADDRESS TO PT. AND PT. MOTHER.
--- NOTE | 2017-06-19 19:15 | NUR ---
BEDSIDE REPORT GIVEN TO KIM BECKFORD. IN STABLE CONDITION. ALSO ENDORSED ABOUT PT. D/C HOME TONIGHT.
--- NOTE | 2017-06-19 19:40 | NUR ---
PATIENT WAS DISCHARGED SIGNED ALL DISCHARGE PAPERWORK VERBALIZES UNDERSTANDING TO MAKE A FOLLOW UP APPOINTMENT WITH THE GI SPECIALIST AND INFORMATION PROVIDED IN THE DISCHARGE PACKET PATIENT VERBALIZES UNDERSTANDING.FAMILY HERE TO TAKE PATIENT HOME.PATIENT WHEELED OUT TO THE CAR BY DELMY OLMEDO.
--- NOTE | 2017-06-19 19:40 | NUR ---
CHEMISTRY PHYSICS TEACHER AND HOUSE SUPEVISOR AWARE PATIENT HAS BEEN DISCHARGE.
== END 2017-06-19 19:40 | disposition home or self-care (01) | DRG 872 ==
LOC: MED 09:13 → MTU 12:19
PROVIDERS: ADMIT Internal Medicine Cardiovascular Disease; ATTEND Internal Medicine Cardiovascular Disease
DX: A41.9 Sepsis, unspecified organism (principal); T18.3XXA Foreign body in small intestine, initial encounter; E83.51 Hypocalcemia; F41.9 Anxiety disorder, unspecified; E87.6 Hypokalemia; R73.9 Hyperglycemia, unspecified; X58.XXXA Exposure to other specified factors, initial encounter; Y93.89 Activity, other specified; Y92.89 Other specified places as the place of occurrence of the external cause; Y99.8 Other external cause status
CPT/HCPCS: 36415; 74000; 74022; 80048; 80053; 82150; 82948; 83615; 83690; 85025; 85610; 85651; 85730; 86140; 87040; 87045; 87070; 87081; 96374; 99285; J0696; J1170; J1956; J2270; J3490; J7030; J7042; J7060; Q0092